=== PATIENT | female | born 1995 | race African-American/Black ===

== ENCOUNTER 2020-07-26 14:55 | Emergency (ER) | payer OTHER ==
[~2020-07-26] VITALS: Ht 167.6 cm; Wt 81.7 kg
[2020-07-26] MEDS ORDERED: PENICILLIN VK500 M1 PO (15:45)
[2020-07-26] MEDS ORDERED: MOBIC15 MG PO (15:45)
[2020-07-26 16:26] VITALS: BP 139/93
== END 2020-07-26 16:27 | disposition home or self-care (01) ==
LOC: ER 14:55
DX: K04.7 Periapical abscess without sinus (principal); R51 Headache; H53.149 Visual discomfort, unspecified

== ENCOUNTER 2021-09-06 18:55 | Emergency (ER) | payer OTHER ==
[~2021-09-06] VITALS: Ht 167.6 cm; Wt 77.1 kg
[~2021-09-06 18:55] MED LIST: MOBIC15 MG PO; PENICILLIN VK500 M1 PO
[2021-09-06 20:28] VITALS: BP 138/92
== END 2021-09-06 20:29 | disposition home or self-care (01) ==
LOC: ER 18:55
DX: S01.112A Laceration without foreign body of left eyelid and periocular area, initial encounter (principal); W22.8XXA Striking against or struck by other objects, initial encounter; Y93.89 Activity, other specified; Y92.89 Other specified places as the place of occurrence of the external cause; Y99.8 Other external cause status